=== PATIENT | female | born 1950 | race Two or more races ===

== ENCOUNTER → 2017-03-28 | Outpatient (CLI) | payer MEDICARE, OTHER ==
--- NOTE | 2017-03-28 23:05 | MR ---
EXAMINATION TYPE: MR lumbar spine wo con DATE OF EXAM: 03/28/2017 COMPARISON: NONE HISTORY: Patient has degenerative disc disorder L4 radicular pain per order. And low back pain for 1. 5 years per order. TECHNIQUE: Multiplanar, multisequence imaging of the lumbar spine is performed without IV contrast. FINDINGS: Sagittal images of the lumbar spine show vertebral body heights to appear satisfactory. Str aightening of lumbar spine is present. Multilevel disc desiccation is seen. There is mild to moderate disc space narrowing at L1-L2 and L4-L5 levels. Posterior disc herniations are seen effacing anterio r thecal sac at these levels on sagittal images. The conus medullaris is normal in position and signa l ending at T12-L1 disc space level. The bone marrow signal intensity is within normal limits. Mild to moderate multilevel anterior spurring is present most prominent anteriorly L4-L5 level. Axial images at T12-L1 level shows mild facet degenerative changes and mild broad disc bulge mildly e ffacing anterior thecal sac, bilateral neural foramina are patent. Axial images at L1-L2 level shows broad disc bulge with right paracentral disc protrusion component e ffacing anterior thecal sac. There is mild facet degenerative changes bilaterally. Bilateral neural f oramina are patent. Axial images at L2-L3 level show mild facet degenerative changes and mild broad disc bulge minimally effacing anterior thecal sac, bilateral neural foramina are patent. Axial images at L3-L4 level show mild to moderate facet degenerative changes and mild to moderate bro ad disc bulge. There is mild effacement anterior thecal sac. Bilateral neural foramina are patent. Axial images at L4-L5 level show moderate broad disc bulge effacing anterior thecal sac. There is mil d facet degenerative changes bilaterally. There is mild to moderate right and mild left-sided neural foraminal narrowing. Axial images at L5-S1 level show mild to moderate facet degenerative changes bilaterally. There is br oad-based right paracentral disc protrusion effacing anterolateral thecal sac. There is mild to borde rline moderate left greater than right anterior-inferior neural foraminal narrowing. No suspicious retroperitoneal findings are seen. IMPRESSION: Straightening of lumbar spine with multilevel degenerative changes most prominent at L4-L 5 level seen as detailed above.
--- NOTE | 2017-03-28 23:07 | MR ---
EXAMINATION TYPE: MR shoulder LT wo con DATE OF EXAM: 03/28/2017 COMPARISON: NONE HISTORY: Patient having left shoulder pain TECHNIQUE: Multiplanar, multisequence imaging of the left shoulder is performed without contrast. FINDINGS: There is abnormal increased signal at the greater tuberosity of the humerus in the supraspinatus tend on. There is no retraction. There is slight narrowing of the subacromial joint space. Biceps tendon is intact. Subscapularis tendon is intact. Glenoid vicente appear intact. There is no ree dence of a fracture. IMPRESSION: There is a large full-thickness tear of the supraspinatus tendon at the insertion on the greater tube rosity of the humerus. No fracture. Mild subacromial impingement. Subacromial fluid consistent with s ynovitis.
== END | disposition home or self-care (01) ==
LOC: RADMRIMAIN 17:41
PROVIDERS: ATTEND Internal Medicine
DX: S46.812A Strain of other muscles, fascia and tendons at shoulder and upper arm level, left arm, initial encounter (principal); M75.42 Impingement syndrome of left shoulder; M47.26 Other spondylosis with radiculopathy, lumbar region
CPT/HCPCS: 72148

== ENCOUNTER → 2017-03-31 | Outpatient (CLI) | payer MEDICARE, OTHER ==
--- NOTE | 2017-04-03 13:50 | MM ---
Reason for exam: screening (asymptomatic). Last mammogram was performed 1 year and 1 month ago. History: Patient is postmenopausal. Physical Findings: A clinical breast exam by your physician is recommended on an annual basis and results should be correlated with mammographic findings. MG 3D Screening Mammo W/Cad Bilateral CC and MLO view(s) were taken. Prior study comparison: February 15, 2016, mammogram, performed at [facility]. March 01, 2013, mammogram, performed at [facility]. There are scattered fibroglandular densities. There is chronic nodularity in the right breast. There is no discrete abnormality. ASSESSMENT: Negative, BI-RAD 1 RECOMMENDATION: Routine screening mammogram of both breasts in 1 year.
== END | disposition home or self-care (01) ==
LOC: RADMAMWWP 15:34
PROVIDERS: ATTEND Obstetrics & Gynecology Obstetrics
DX: Z12.31 Encounter for screening mammogram for malignant neoplasm of breast (principal)
CPT/HCPCS: 77063; G0202

== ENCOUNTER 2017-04-20 06:17 | Day surgery (SDC) | payer MEDICARE, OTHER ==
[2017-04-17 08:42] VITALS: BMI 32.3
--- NOTE | 2017-04-19 14:34 | HP ---
HISTORY AND PHYSICAL DATE OF SERVICE: 04/20/2017 A 67-year-old patient seen with progressive left shoulder pain. After treatment options were discussed, she elected to proceed with arthroscopy. Consent was obtained. Medical clearance was provided by Dr. Elijah Ambrocio. PAST MEDICAL HISTORY: Hyperlipidemia, osteoarthritis. PAST SURGICAL HISTORY: Right shoulder arthroscopy. DAILY MEDICATIONS: 1. Prozac. 2. Ibuprofen. ALLERGIES: None reported. SOCIAL HISTORY: Patient denies tobacco use. Physical evaluation of left shoulder, flexion 120 degrees, abduction 120 degrees, external rotation is 30 degrees with pain and weakness. She is tender along the anterolateral acromion rotator cuff insertion site. Impingement positive 90 degrees, drop-arm sign is positive. Distal neurovascular exam is intact. Left shoulder radiographs reveal a type 2 anterior acromion and cystic changes of the greater tuberosity. An MRI left shoulder revealed a large rotator cuff tear as well as subacromial impingement. IMPRESSION: Left shoulder impingement with rotator cuff tear. PLAN: Left shoulder arthroscopy, subacromial decompression, probable arthroscopic rotator cuff repair and debridement. MMODL / IJN: [id number] /
[~2017-04-20 06:17] MED LIST: DEXAMETHASONE SOD PHOSPHATE 10 MG/ML 1 ML VIAL IV ONE; HYDROmorphone 0.5 MG/0.5 ML SYRINGE IVP PRN; MIDAZOLAM 2 MG/2 ML VIAL IV PRN; ONDANSETRON 4 MG/2 ML VIAL IVP ONE; ceFAZolin 2 GM in SODIUM CHLORIDE 0.9% 100 ML IVPB ONE
[2017-04-20] MEDS: LACTATED RINGERS 1,000 ML IV SCH ×2 (06:42→08:45)
[2017-04-20] MEDS ORDERED: PROPOFOL 10 MG/ML 20 ML VIAL IV ONE (07:22)
[2017-04-20] MEDS ORDERED: SUCCINYLCHOLINE CHLORIDE 100 MG/5 ML SYR IV ONE (07:22)
[2017-04-20] MEDS ORDERED: fentaNYL (PF) 50 MCG/ML 2 ML AMP ONE (07:22)
[2017-04-20] MEDS ORDERED: LIDOCAINE 2%-EPI 1:100,000 20 ML VIAL ONE (07:22)
[2017-04-20] MEDS ORDERED: MIDAZOLAM 2 MG/2 ML VIAL ONE (07:22)
[2017-04-20] MEDS ORDERED: LIDOCAINE 1% INJ 10MG/ML (20 ML MDV) ONE (07:22)
[2017-04-20] MEDS ORDERED: ROPIVACAINE 5 MG/ML 30 ML VIAL ONE (07:22)
[2017-04-20] MEDS ORDERED: ePHEDrine SULFATE/0.9% NACL/PF 50 MG/5 ML SYRINGE IV ONE (07:22)
--- NOTE | 2017-04-20 09:28 | P.OP ---
Date of Procedure: 04/20/17 Preoperative Diagnosis: Left shoulder impingement with rotator cuff tear Postoperative Diagnosis: 1. Left shoulder rotator cuff tear 2. Left shoulder impingement 3. Left shoulder acromioclavicular joint osteoarthritis 4. Left shoulder partial long head biceps tendon tear 5. Left shoulder superficial anterior labral tear 6. 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 Left shoulder arthroscopic rotator cuff repair 2. Left shoulder arthroscopic subacromial decompression 3. Left shoulder arthroscopic Elaine procedure 4. Left shoulder arthroscopic biceps tenotomy 5. Left shoulder arthroscopic debridement labral tear 6. Left shoulder arthroscopic chondroplasty humeral head Implants: 4-peek anchors Anesthesia: GETA, regional (Interscalene block) Surgeon: Claude Kulkarni Continuous Drier Helper #1: Jerome Fitzgerald Estimated Blood Loss (ml): 30 Pathology: none sent Condition: stable Disposition: PACU Indications for Procedure: 67-year-old patient seen with progressive left shoulder pain. After treatment options were discussed, she elected to proceed with arthroscopy. Operative Findings: see description of procedure Description of Procedure: Patient underwent a shoulder block by department of anesthesia. The patient was then taken to the operative suite. The patient underwent a general anesthetic by the department of anesthesia. The patient was placed into a lateral position and secured. There was appropriate padding of the bony prominence. Left shoulder was then prepped and draped in normal sterile orthopedic fashion. We placed the extremity in 10 pounds of longitudinal traction. A posterior incision was now made for a posterior working portal site. The trocar and cannula were inserted into the glenohumeral joint. Arthroscopy was initiated. Spinal needle was now inserted anteriorly, to ascertain the anterior working portal site. An incision was now made in that area, a trocar was inserted followed by a probe. There was an area of grade 2 chondromalacia central portion humeral head with some peripheral osteochondral tears measuring approximately 1.5 cm in diameter. There were mild diffuse grade 1 chondromalacia changes of the glenoid fossa. There was a superficial anterior labral tear present. The superior and inferior labrum appeared stable. There was partial tearing long head biceps tendon with a longitudinal split. I couldn't visualize rotator cuff tear from the glenohumeral side. I debrided the labral tear down to stable tissue. I performed a chondroplasty of the humeral head down to stable articular tissue. I performed an arthroscopic biceps tenotomy. The residual labrum was probed and found to be stable. The residual osteochondral surface was stable. Instruments were now removed from the glenohumeral joint. Utilizing the posterior working portal site, the trocar and cannula were inserted into the subacromial space. Arthroscopy initiated. I made an incision 2 fingerbreadths lateral to the acromion. I introduced my trocar followed by my [employer] ablator. I now began ablating thick subacromial bursal tissue, which exposed the undersurface of the anterior acromion. This was diminished subacromial space. There was a very prominent anterior acromion. A motorized bur was introduced and a subacromial decompression was performed. I also excised some osteophytes off the inferior aspect of the distal clavicle. The AC joint was visualized and noted to be fairly arthritic. Our motorized bur was introduced in the anterior portal site and a Elaine procedure was performed without difficulty, decompressing the AC joint nicely. I turned my attention to the rotator cuff. We identified the rotator cuff tear involving the distal supraspinatus. I debrided the margins getting down to stable tendon tissue. The defect measured approximately 2.5 cm but freely mobile over the footprint. An sas programmer analyst portal site was now created off the lateral aspect of the acromion. I now introduced 2 medial anchors with 2 sutures each. I passed all 8 limbs of suture through good bites of rotator cuff tendon. The footprint had been abraded with a motorized bur. The sutures were crisscrossed pulling the tendon over the footprint and securing it with 2 lateral anchors. Residual suture limbs were clipped. The repair was probed and found to be stable. I injected 1 mL of umbilical cord matrix intra-articular. Instruments now removed from the portal sites. All portal sites were approximated with nylon suture. Sterile dressings were applied followed by a shoulder immobilizer. Faraz WHITE assisted with the procedure. The patient was awakened, transferred to a bed, and taken to recovery in stable condition.
[2017-04-20 09:29] VITALS: TEMP 97
[2017-04-20] MEDS ORDERED: IV FLUID CONTINUATION 1,000 ML IV ONE (12:26)
[2017-04-20 13:05] VITALS: BP 111/59; PULSE 90; RESP 18
--- NOTE | 2017-04-20 17:53 | P.ONQ ---
Anesthesiology Proc Note - PNB - Peripheral Nerve Block Performed Left Interscalene Single Procedure Start Time: 06:54 Procedure Stop Time: 06:59 Indication: Acute Post-Operative Pain, Requested by physician Sedation Type: Sedate with meaningful contact maintained Preparation: Sterile Prep Needle Size: 50mm (2") Needle Gauge: 21 Technique: Ultrasound Injectate: 2.0% Lidocaine (see comment for volume) (ropi .5% 20cc plus lido 2% plus epi) Blood Aspirated: No Pain Paresthesia on Injection Noted: No Resistance on Injection: Normal Events: Uneventful and Well Tolerated
== END 2017-04-20 14:13 | disposition home or self-care (01) ==
LOC: OR 06:17
PROVIDERS: ATTEND Orthopaedic Surgery
DX: M75.102 Unspecified rotator cuff tear or rupture of left shoulder, not specified as traumatic (principal); M19.012 Primary osteoarthritis, left shoulder; S46.112A Strain of muscle, fascia and tendon of long head of biceps, left arm, initial encounter; X58.XXXA Exposure to other specified factors, initial encounter; S43.492A Other sprain of left shoulder joint, initial encounter; M94.212 Chondromalacia, left shoulder; M25.712 Osteophyte, left shoulder; M75.42 Impingement syndrome of left shoulder; G89.29 Other chronic pain; M51.16 Intervertebral disc disorders with radiculopathy, lumbar region; E78.5 Hyperlipidemia, unspecified; F41.1 Generalized anxiety disorder; F43.0 Acute stress reaction; F33.42 Major depressive disorder, recurrent, in full remission; J45.20 Mild intermittent asthma, uncomplicated; M75.51 Bursitis of right shoulder; R07.9 Chest pain, unspecified; R04.0 Epistaxis; H65.22 Chronic serous otitis media, left ear; Z79.51 Long term (current) use of inhaled steroids; Z79.899 Other long term (current) drug therapy; Z79.1 Long term (current) use of non-steroidal anti-inflammatories (NSAID)
CPT/HCPCS: 64415; 29827; 29826; 29824; C1713 ×2; C1765; J2250; J1100; J0690; J2405; J2001; J3010; J2795; J0330; J2704

== ENCOUNTER → 2019-11-07 | Outpatient (CLI) | payer MEDICARE, OTHER ==
--- NOTE | 2019-11-07 11:08 | CT ---
EXAMINATION TYPE: CT chest wo con DATE OF EXAM: 11/07/2019 COMPARISON: None HISTORY: Persistant cough CT DLP: 567 mGycm High-resolution noncontrast CT of the chest was performed with the patient in the prone and supine po sitions. Lung and mediastinal window settings are submitted. The lungs appear to be well-aerated. I do not see evidence for fibrotic change. There is no eviden ce for bronchiectasis, nodule or mass. Small areas of the left upper lobe groundglass infiltrate as well as a right medial lung base groundglass infiltrate may reflect acute inflammatory process. Corre late clinically. No pleural effusion is identified. I do not see evidence for hilar or mediastinal m ass or adenopathy. IMPRESSION: Small areas of the left upper lobe groundglass infiltrate as well as a right medial lung base groundglass infiltrate may reflect acute inflammatory process. Correlate clinically.
== END | disposition home or self-care (01) ==
LOC: RADCTMAIN 10:17
PROVIDERS: ATTEND Internal Medicine
DX: R91.8 Other nonspecific abnormal finding of lung field (principal)
CPT/HCPCS: 71250